=== PATIENT | female | born 1980 | race American Indian/Alaskan Native ===

== ENCOUNTER 2018-09-16 00:43 | Emergency (ER) | payer MEDICAID, OTHER ==
[2018-09-16 01:19] LABS: Basophils # (Auto) 0.1 K/mm3 (0.0-0.1); Basophils % (Auto) 0.6 % (0.0-1.8); Eosinophils # (Auto) 0.2 K/mm3 (0.0-0.4); Eosinophils % (Auto) 1.9 % (0.0-4.3); Hematocrit 32.4 % (30.3-42.9); Hemoglobin 11.2 gm/dl (10.1-14.3); Lymphocytes # (Auto) 4.1 K/mm3 (1.2-5.4); Lymphocytes % (Auto) 35.5 % (13.4-35.0); Mean Corpuscular HGB Conc 35 % (30-34); Mean Corpuscular Volume 95 fl (79-97); Monocytes # (Auto) 0.7 K/mm3 (0.0-0.8); Monocytes % (Auto) 5.8 % (0.0-7.3); Platelet Count 330 K/mm3 (140-440); Red Blood Count 3.43 M/mm3 (3.65-5.03); Red Cell Distribution Width 13.5 % (13.2-15.2)
--- NOTE | 2018-09-16 04:41 | Emergency Department Report ---
<ORIN HUGHES - Last Filed: 09/16/18 04:39> ED Female HPI - General Chief complaint: Vaginal Bleeding Stated complaint: MISCARRIAGE Time Seen by Provider: 09/16/18 01:27 Source: patient Mode of arrival: Wheelchair Limitations: No Limitations - History of Present Illness Initial comments: 38-year-old -[place] female, G7, P6, transient emergency department complaining of passing 2, glucose 11 PM this evening she had been having spotting for several weeks. During the spotting. She reports having been seen at [facility].As well as 2 other hospitals and returns here this evening. She has yet to follow-up with [facility] despite Tl. She's been for quite some time. She reports sharp episodic crampy abdominal pain to the suprapubic region, not associated with any dysuria or flank pain. She denies any trauma. Reports no fever, chills, sweats, chest pain, palpitation, but is tolerating orals complications. MD Complaint: vaginal bleeding Radiation: suprapubic Quality: cramping, sharp Consistency: intermittent Improves with: none Worsens with: none - Related Data Previous Rx's Medication Instructions Recorded Last Taken Type 21/Iron Fu/Folic Acid 1 each PO DAILY #30 tablet 08/27/18 Unknown Rx [ Complete Caplet] Acetaminophen [Tylenol Extra 1,000 mg PO QID PRN #30 tablet 09/16/18 Unknown Rx Strength] Allergies Allergy/AdvReac Type Severity Reaction Status Date / Time No Known Allergies Allergy Unverified 08/27/18 10:28 ED Review of Systems Constitutional: denies: chills, fever Eyes: denies: eye pain, eye discharge, vision change ENT: denies: ear pain, throat pain Respiratory: denies: cough, shortness of breath, wheezing Cardiovascular: denies: chest pain, palpitations Endocrine: no symptoms reported Gastrointestinal: denies: abdominal pain, nausea, diarrhea Genitourinary: denies: urgency, dysuria, discharge Musculoskeletal: denies: back pain, joint swelling, arthralgia Skin: denies: rash, lesions Neurological: denies: headache, weakness, paresthesias Psychiatric: denies: anxiety, depression Hematological/Lymphatic: denies: easy bleeding, easy bruising ED Past Medical Hx - Past Medical History Previous Medical History?: Yes Hx Asthma: Yes - Surgical History Past Surgical History?: Yes Additional Surgical History: partial pancreas. spleenectomy. - Social History Smoking Status: Never Smoker Substance Use Type: None - Medications Home Medications: Home Medications Medication Instructions Recorded Confirmed Last Taken Type 21/Iron Fu/Folic Acid 1 each PO DAILY #30 tablet 08/27/18 Unknown Rx [ Complete Caplet] Acetaminophen [Tylenol Extra 1,000 mg PO QID PRN #30 tablet 09/16/18 Unknown Rx Strength] ED Physical Exam - General Limitations: No Limitations General appearance: alert, in no apparent distress - Head Head exam: Present: atraumatic, normocephalic - Eye Eye exam: Present: normal appearance, PERRL, EOMI Pupils: Present: normal accommodation - ENT ENT exam: Present: normal exam, mucous membranes moist - Neck Neck exam: Present: normal inspection - Respiratory Respiratory exam: Present: normal lung sounds bilaterally. Absent: respiratory distress - Cardiovascular Cardiovascular Exam: Present: regular rate, normal rhythm. Absent: systolic murmur, diastolic murmur, rubs, gallop - GI/Abdominal GI/Abdominal exam: Present: soft, tenderness (suprapubic region), normal bowel sounds - Extremities Exam Extremities exam: Present: normal inspection - Back Exam Back exam: Present: normal inspection - Neurological Exam Neurological exam: Present: alert, oriented X3 - Psychiatric Psychiatric exam: Present: normal affect, normal mood - Skin Skin exam: Present: warm, dry, intact, normal color. Absent: rash ED Medical Decision Making - Lab Data Result diagrams: 09/16/18 01:06 ED Disposition Clinical Impression: Miscarriage, Threatened miscarriage Disposition: DC-01 TO HOME OR SELFCARE Condition: Stable Instructions: Spontaneous Miscarriage (ED), Threatened Miscarriage (ED) Prescriptions: Acetaminophen [Tylenol Extra Strength] 1,000 mg PO QID PRN #30 tablet PRN Reason: Pain , Severe (7-10) Referrals: FLO PAULINO MD [Staff Physician] - 3-5 Days Forms: Work/School Release Form(ED) <JASPAL LOPEZ - Last Filed: 09/16/18 06:06> ED Review of Systems ROS: Stated complaint: MISCARRIAGE Other details as noted in HPI ED Course Vital Signs 09/16/18 00:47 Temperature 98.2 F Pulse Rate 71 Respiratory 16 Rate Blood Pressure 120/78 O2 Sat by Pulse 99 Oximetry ED Medical Decision Making - Lab Data Result diagrams: 09/16/18 01:06 - Radiology Data Radiology results: report reviewed, image reviewed FINAL REPORT PROCEDURE: XR CHEST ROUTINE 2V TECHNIQUE: A portable AP chest radiograph was obtained at 09/16/2018 03:48 (EST) . CPT 78465 HISTORY: fever and cough COMPARISON: No prior studies are available for comparison. FINDINGS: Heart: Normal. Mediastinum/Vessels: Normal. Lungs/Pleural space: There are faint infiltrates at the right lung base. There is no pleural effusion or pneumothorax.. Bony thorax: No acute osseous abnormality. Life support devices: None. IMPRESSION: Normal cardiothymic shadow. There are faint infiltrates at the right lung base. There is no pleural effusion or pneumothorax... - Medical Decision Making This is likely a miscarriage discussed with patient patient verbalizes agreement and understanding with saline patient will follow up with [facility] in 2-3 days NSAIDS, pain return to emergency department should symptoms worsen, patient has had no ABO incompatibility issues in the past with multiple pregnancies of 7+ blood type is O+ Critical care attestation.: If time is entered above; I have spent that time in minutes in the direct care of this critically ill patient, excluding procedure time. ED Disposition Is pt being admited?: No Does the pt Need Aspirin: No Time of Disposition: 06:05
--- NOTE | 2018-09-16 04:58 | Ultrasound Report ---
FINAL REPORT EXAM: US OB TRANSVAGINAL HISTORY: pelvic pain and COMPARISONS: None available. FINDINGS: Transvaginal grayscale and color Doppler pelvic ultrasound Anteverted uterus measures 11.6 x 6.5 x 7.5 cm. Heterogeneous thickening of the endometrium measuring up to 2 cm. No findings of intrauterine including no visualized gestational sac. No free f luid in the pelvis. The right ovary measures approximately 6 x 1.7 x 4.1 cm and contains adjacent anechoic cystic structu res measuring up to 2.2 cm in greatest dimension. No right ovarian hyperemia on color Doppler evaluat ion. The left ovary is sonographically unremarkable and measures 2.9 x 1.5 x 2.3 cm. IMPRESSION: No findings of intrauterine . There is heterogeneous thickening of the endometrium, which ma y be residual products from reported failed 1st trimester . Close interval clinical and sono graphic follow-up are suggested. Functional appearing cysts in the right ovary measure up to 2.2 cm in greatest dimension. No specific findings of ectopic . Trending of beta HCG and sonographic follow-up are suggested.
--- NOTE | 2018-09-16 05:00 | Ultrasound Report ---
FINAL REPORT EXAM: US OB <= 14 WEEKS FETUS HISTORY: Vaginal bleeding pain COMPARISONS: None available. FINDINGS: Transabdominal is the grayscale and color Doppler pelvic ultrasound Anteverted uterus measures 11.6 x 6.5 x 7.5 cm. Heterogeneous thickening of the endometrium measuring up to 2 cm. No findings of intrauterine including no visualized gestational sac. No free f luid in the pelvis. The right ovary measures approximately 6 x 1.7 x 4.1 cm and contains adjacent anechoic cystic structu res measuring up to 2.2 cm in greatest dimension. No right ovarian hyperemia on color Doppler evaluat ion. The left ovary is sonographically unremarkable and measures 2.9 x 1.5 x 2.3 cm. IMPRESSION: No findings of intrauterine . There is heterogeneous thickening of the endometrium, which ma y be residual products from reported failed 1st trimester . Close interval clinical and sono graphic follow-up are suggested. Functional appearing cysts in the right ovary measure up to 2.2 cm in greatest dimension. No specific findings of ectopic . Trending of beta HCG and sonographic follow-up are suggested.
[2018-09-16 06:54] VITALS: BP 121/68
== END 2018-09-16 07:00 | disposition home or self-care (01) ==
LOC: ED 00:43
DX: O20.0 Threatened abortion (principal); O99.511 Diseases of the respiratory system complicating pregnancy, first trimester; J45.909 Unspecified asthma, uncomplicated; Z90.81 Acquired absence of spleen; Z3A.01 Less than 8 weeks gestation of pregnancy
CPT/HCPCS: 36415; 76801; 76817; 84702; 85025; 86850; 86900; 86901